=== PATIENT | male | born 1985 | race African-American/Black ===

== ENCOUNTER 2020-05-10 10:00 | Emergency (ER) | payer OTHER, SELFPAY ==
--- NOTE | 2020-05-10 | XR_ITS ---
EXAMINATION: XR FOREARM, LEFT CLINICAL INFORMATION: Evaluate for foreign body COMPARISON: None TECHNIQUE: AP and lateral views of the left forearm were obtained. FINDINGS: Alignment is normal at the elbow and wrist. The radius and ulna are intact. No acute fracture or subluxation. There appears to be soft tissue laceration in the distal anterior, ulnar aspect of the forearm. No radiopaque foreign body in this area. IMPRESSION: No evidence of radiopaque foreign body in the region of soft tissue injury.
[2020-05-10 10:24] VITALS: BP 142/79; PULSE 90; RESP 18; TEMP 37.2; O2SAT 100; BMI 29.2
--- NOTE | 2020-05-10 10:51 | ED_ITS ---
HPI - Extremity Problem General Chief complaint: Extremity Injury, Upper Stated complaint: Laceration on forearm Time Seen by Provider: 05/10/20 10:42 History of Present Illness HPI Narrative: patient complains of laceration to left forearm which happened just an hour ago Patient was changing an overhead light and the light fell breaking and cutting his left forearm, he denies any other injury he has no numbness or weakness no tingling, he is not sure if there is a foreign body in the wound from the broken glass Related Data Previous Rx's Medication Instructions Recorded cephalexin [Keflex] 500 mg PO QID 4 Days #16 cap 05/10/20 ibuprofen 600 mg PO Q6H PRN #20 tab 05/10/20 oxycodone-acetaminophen [Percocet] 1 tab PO Q6H PRN #10 tab 05/10/20 Allergies Allergy/AdvReac Type Severity Reaction Status Date / Time No Known Allergies Allergy Verified 05/10/20 10:43 Review of Systems Review of Systems: no numbness no weakness no head pain no neck pain, denies foreign body sensation, denies any other injury [facility] Past Medical History Source: nursing notes reviewed Medical History (Updated 05/10/20 @ 13:13 by TODD Marroquin) No known health problems Social History Social History Alcohol intake: never Smoking Status: Never smoker Smoked in Last 30 Days: No Use of substances other than those prescribed or required for medical reasons: No Advance Directives: No Advance Directives Information Provided: No Physical Exam Vital Signs: Vital Signs: Vital Signs Temp Pulse Resp BP Pulse Ox 05/10/20 13:06 98.5 F 75 20 138/51 L 98 05/10/20 10:24 98.9 F 90 18 142/79 H 100 Body Mass Index 29.2 general appearance no acute distress Normocephalic atraumatic Neck is supple Respiratory, no respiratory distress There is a 3 cm deep laceration to the volar surface of the left forearm as well as a smaller 1-1/2 cm laceration proximal to that in the volar forearm Sensation and motor are intact, flexor and extensor tendon function is intact Neurovascular intact Discharge Plan Discharge Clinical Impression: Laceration of forearm, left Qualifiers: Encounter type: initial encounter Qualified Code(s): S51.812A - Laceration without foreign body of left forearm, initial encounter Patient Disposition: Home, Self-Care Additional Instructions: because he of tingling sensation in the fingers you should follow with hand specialist, you can make an appointment with [facility] [place] phone number [phone] You may need a referral from primary doctor Stitches come out in 10-14 days Return any time for redness, swelling, red stripe up arm, any discharge, any sign of infection any worse condition or any concerns You got a tetanus shot We are giving Keflex antibiotic to help prevent infection Prescriptions: New oxycodone-acetaminophen [Percocet] 5-325 mg tablet 1 tab PO Q6H PRN (Reason: pain) Qty: 10 RF: 0 ibuprofen 600 mg tablet 600 mg PO Q6H PRN (Reason: pain) Qty: 20 RF: 0 cephalexin [Keflex] 500 mg capsule 500 mg PO QID 4 Days Qty: 16 RF: 0 Stand Alone Forms: Work/School Release Interventions: ED Discharge Assessment Last Done: 05/10/20 13:16 Discharge Date/Time: 05/10/20 13:23
[2020-05-10] MEDS: cephALEXin 500 MG CAPSULE PO (13:05)
[2020-05-10 13:06] VITALS: BP 138/51; PULSE 75; RESP 20; TEMP 36.9; O2SAT 98
== END 2020-05-10 13:23 | disposition home or self-care (01) ==
PROVIDERS: Emergency Provider Emergency Medicine
DX: S51.812A Laceration without foreign body of left forearm, initial encounter (principal); M79.632 Pain in left forearm; W25.XXXA Contact with sharp glass, initial encounter; Y93.9 Activity, unspecified; Y92.009 Unspecified place in unspecified non-institutional (private) residence as the place of occurrence of the external cause
CPT/HCPCS: 73090; 90471; 90715; 99284